=== PATIENT | female | born 1945 | race Caucasian/White ===

== ENCOUNTER 2021-01-21 08:53 | Emergency (ER) | payer MEDICARE ==
[~2021-01-21] VITALS: Ht 167.6 cm; Wt 61.4 kg
[2021-01-21 09:05] VITALS: BP 139/89
[2021-01-21] MEDS ORDERED: proparacaine 0.5% ophthalmic drops 15ml RIGHTEYE ONE (09:35)
[2021-01-21] MEDS ORDERED: erythromycin ophthalmic ointment 1gm tube RIGHTEYE ONE (09:55)
[2021-01-21] MEDS ORDERED: ERYT1OIN6 RIGHTEYE (10:26)
== END 2021-01-21 10:47 | disposition home or self-care (01) ==
LOC: ER 08:54
DX: H16.001 Unspecified corneal ulcer, right eye (principal); Z79.899 Other long term (current) drug therapy
CPT/HCPCS: 99284